=== PATIENT | female | born 1975 | race African-American/Black ===

== ENCOUNTER 2024-04-30 11:59 | Inpatient (IN) | payer OTHER ==
[2024-04-30 12:36] VITALS: BMI 29.2
[2024-04-30] MEDS ORDERED: BISMUTH SUBSALICYLATE 262 MG/15 ML BTL PO PRN (13:46)
[2024-04-30] MEDS ORDERED: POLYETHYLENE GLYCOL (HEALTHYLAX) 3350 17 GM PACKET PO PRN (13:46)
[2024-04-30] MEDS ORDERED: IBUPROFEN 400 MG TABLET (FP) PO PRN (13:46)
[2024-04-30] MEDS ORDERED: NALOXONE (NARCAN) HCL 4 MG/0.1 ML SPRAY NS PRN (13:46)
[2024-04-30] MEDS ORDERED: MAGNESIUM HYDROX 2400MG/30ML ORAL SUSPENSION 30 ML CUP PO PRN (13:46)
[2024-04-30] MEDS ORDERED: METHOCARBAMOL 500 MG TABLET PO PRN (13:46)
[2024-04-30] MEDS ORDERED: DICYCLOMINE HCL 10 MG CAPSULE PO PRN (13:46)
[2024-04-30] MEDS ORDERED: LORazepam 1 MG TABLET PO PRN (13:46)
[2024-04-30] MEDS ORDERED: BENZONATATE 200 MG CAPSULE PO PRN (13:46)
[2024-04-30] MEDS ORDERED: hydrOXYzine PAMOATE 25 MG CAPSULE (FP) PO PRN (13:46)
[2024-04-30] MEDS ORDERED: LOPERAMIDE HCL 2 MG CAPSULE PO PRN (13:46)
[2024-04-30] MEDS ORDERED: IBUPROFEN 600 MG TABLET (FP) PO PRN (13:46)
[2024-04-30] MEDS ORDERED: guaiFENesin 600 MG TABLET.ER (FP) PO PRN (13:46)
[2024-04-30] MEDS ORDERED: MAG HYDROX/AL HYDROX/SIMETH 30 ML UNIT-DOSE CUP PO PRN (13:46)
[2024-04-30] MEDS ORDERED: ONDANSETRON *ODT* 4 MG TABLET SL PRN (13:46)
[2024-04-30] MEDS ORDERED: traMADol HCL 50 MG TABLET PO PRN (14:02)
[2024-04-30] MEDS ORDERED: NICOTINE 7 MG/24 HOURS TOPICAL PATCH TD ONE (14:21)
[2024-04-30] MEDS ORDERED: PRENATAL VITAMINS W/ FOLIC ACID TABLET (FP) PO ONE (14:21)
[2024-04-30] MEDS ORDERED: LORazepam 2 MG TABLET ONE (14:21)
[2024-04-30] MEDS: LORazepam 2 MG TABLET PO ONE (14:35)
[2024-04-30] MEDS: PRENATAL VITAMINS W/ FOLIC ACID TABLET (FP) PO SCH (14:36)
[2024-04-30] MEDS: NICOTINE 7 MG/24 HOURS TOPICAL PATCH TD SCH (14:36)
[2024-04-30] MEDS: ALBUTEROL SO4 HFA INHALER IH SCH (15:00)
[2024-04-30] MEDS: ATORVASTATIN CA 10 MG TABLET (FP) PO SCH (15:00)
[2024-04-30] MEDS: LORazepam 2 MG TABLET PO SCH (17:22)
[2024-04-30] MEDS: ACETAMINOPHEN 325 MG TABLET (FP) PO PRN (17:22)
[2024-04-30] MEDS: MONTELUKAST NA 10 MG TABLET PO SCH (22:12)
[2024-04-30] MEDS: levETIRAcetam 500 MG TABLET (FP) PO SCH (22:12)
[2024-04-30] MEDS: DOCUSATE SODIUM 100 MG CAPSULE (FP) PO SCH (22:12)
[2024-04-30] MEDS: PANTOPRAZOLE 40 MG TABLET PO SCH (22:12)
[2024-04-30] MEDS: BUDESONIDE/FORMETEROL FUMARATE 80/4.5 mcg INHALER IH SCH (22:12)
[2024-04-30] MEDS: MEGESTROL ACETATE 20 MG TABLET PO SCH (22:12)
[2024-04-30] MEDS: MELATONIN 5 MG TABLETS PO SCH (22:13)
[2024-04-30] MEDS: THIAMINE 100 MG TABLET PO SCH (22:13)
[2024-04-30] MEDS: PRAZOSIN HCL 1 MG CAPSULE PO SCH (22:14)
[2024-05-01] MEDS ORDERED: traMADol HCL 50 MG TABLET PO PRN (10:01)
[2024-05-01] MEDS: SENNOSIDES 8.6MG TABLET (FP) PO SCH (10:44)
[2024-05-01 11:25] LABS: HEMATOCRIT 35.1 % (32.4-45.2); HEMOGLOBIN 11.5 GM/dL (10.7-15.3); MCH 32.9 pg (25.7-33.7); MCHC 32.9 g/dl (32.0-36.0); MEAN CELL VOLUME 100.2 fl (80-96); MEAN PLT VOLUME 7.5 fl (7.5-11.1); PLATELET COUNT 340 10^3/uL (134-434); RBC 3.51 M/mm3 (3.60-5.2); RDW 15.4 % (11.6-15.6)
[2024-05-01 11:33] LABS: CALCIUM 8.8 mg/dL (8.5-10.1)
[2024-05-01 11:34] LABS: BLOOD UREA NITROGEN 14.4 mg/dL (7-18)
[2024-05-01 11:37] LABS: CREATININE 0.8 mg/dL (0.55-1.3)
[2024-05-01 11:38] LABS: BILIRUBIN,TOTAL 0.4 mg/dL (0.2-1); TOT PROT 5.8 g/dl (6.4-8.2)
[2024-05-01] MEDS ORDERED: traZODone HCL 100 MG TABLET (FP) PO SCH (22:00)
[2024-05-01] MEDS: QUEtiapine FUMARATE 100 MG TABLET (FP) PO SCH (22:14)
[2024-05-01] MEDS: traZODone HCL 50 MG TABLET (FP) PO SCH (22:14)
[2024-05-01] MEDS: BENZOCAINE/MENTHOL (CHLORASEPTIC ) LOZENGE MM PRN (22:18)
[2024-05-01] MEDS ORDERED: ALBUTEROL SO4 HFA INHALER IH PRN (22:59)
[2024-05-02] MEDS: LORazepam 1 MG TABLET PO SCH (05:45)
[2024-05-03] MEDS ORDERED: LORazepam 0.5 MG TABLET PO PRN
[2024-05-03] MEDS: LORazepam 0.5 MG TABLET PO SCH (05:49)
[2024-05-04] MEDS: LORazepam 0.5 MG TABLET PO ONE (05:45)
[2024-05-04] MEDS: NALOXONE (NYS OPIOID OVERDOSE PROGRAM) 4 MG/0.1 ML SPRAY NS SCH (08:55)
[2024-05-04 09:19] VITALS: RESP 18
[2024-05-04 13:16] VITALS: BP 131/88; PULSE 65; TEMP 97.7
== END 2024-05-04 13:47 | disposition other institution (70) | DRG 774 ==
LOC: YASAS 11:59 → Y3N 14:24
PROVIDERS: ADMIT Allergy & Immunology; ATTEND Surgery
PROC: HZ2ZZZZ Detoxification Services for Substance Abuse Treatment (ICD-10-PCS; principal; 2024-04-30)
DX: F10.230 Alcohol dependence with withdrawal, uncomplicated (principal); F14.20 Cocaine dependence, uncomplicated; F12.20 Cannabis dependence, uncomplicated; F17.210 Nicotine dependence, cigarettes, uncomplicated; F31.9 Bipolar disorder, unspecified; F20.9 Schizophrenia, unspecified; D64.9 Anemia, unspecified; G40.909 Epilepsy, unspecified, not intractable, without status epilepticus; J45.909 Unspecified asthma, uncomplicated; K21.9 Gastro-esophageal reflux disease without esophagitis
CPT/HCPCS: 36415; 80053; 80305; 80307; 81025; 85027; 86593; 86780; 87811; 93005; 93010; J8999

== ENCOUNTER 2024-05-04 13:48 | Inpatient (IN) | payer OTHER ==
[2024-05-04] MEDS ORDERED: LOPERAMIDE HCL 2 MG CAPSULE PO PRN (18:02)
[2024-05-04] MEDS ORDERED: IBUPROFEN 400 MG TABLET (FP) PO PRN (18:02)
[2024-05-04] MEDS ORDERED: MAGNESIUM HYDROX 2400MG/30ML ORAL SUSPENSION 30 ML CUP PO PRN (18:02)
[2024-05-04] MEDS ORDERED: METHOCARBAMOL 500 MG TABLET PO PRN (18:02)
[2024-05-04] MEDS ORDERED: NALOXONE (NARCAN) HCL 4 MG/0.1 ML SPRAY NS PRN (18:02)
[2024-05-04] MEDS ORDERED: ACETAMINOPHEN 325 MG TABLET (FP) PO PRN (18:02)
[2024-05-04] MEDS ORDERED: hydrOXYzine PAMOATE 25 MG CAPSULE (FP) PO PRN (18:02)
[2024-05-04] MEDS ORDERED: NALOXONE HCL 0.4 MG/ML VIAL IVPUSH PRN (18:02)
[2024-05-04] MEDS ORDERED: BENZONATATE 200 MG CAPSULE PO PRN (18:02)
[2024-05-04] MEDS ORDERED: guaiFENesin 600 MG TABLET.ER (FP) PO PRN (18:02)
[2024-05-04] MEDS ORDERED: MAG HYDROX/AL HYDROX/SIMETH 30 ML UNIT-DOSE CUP PO PRN (18:02)
[2024-05-04] MEDS ORDERED: POLYETHYLENE GLYCOL (HEALTHYLAX) 3350 17 GM PACKET PO PRN (18:02)
[2024-05-04] MEDS ORDERED: BENZOCAINE/MENTHOL (CHLORASEPTIC ) LOZENGE MM PRN (18:02)
[2024-05-04] MEDS ORDERED: IBUPROFEN 600 MG TABLET (FP) PO PRN (18:02)
[2024-05-04] MEDS ORDERED: ALBUTEROL SO4 HFA INHALER IH PRN (18:03)
[2024-05-04] MEDS: BUDESONIDE/FORMETEROL FUMARATE 80/4.5 mcg INHALER IH SCH (22:26)
[2024-05-04] MEDS: THIAMINE 100 MG TABLET PO SCH (22:27)
[2024-05-04] MEDS: MELATONIN 5 MG TABLETS PO SCH (22:28)
[2024-05-04] MEDS: levETIRAcetam 500 MG TABLET (FP) PO SCH (22:29)
[2024-05-04] MEDS: PRAZOSIN HCL 1 MG CAPSULE PO SCH (22:29)
[2024-05-04] MEDS: PANTOPRAZOLE 40 MG TABLET PO SCH (22:30)
[2024-05-04] MEDS: DOCUSATE SODIUM 100 MG CAPSULE (FP) PO SCH (22:30)
[2024-05-04] MEDS: MONTELUKAST NA 10 MG TABLET PO SCH (22:30)
[2024-05-04] MEDS: ATORVASTATIN CA 10 MG TABLET (FP) PO SCH (22:30)
[2024-05-04] MEDS: traZODone HCL 50 MG TABLET (FP) PO SCH (22:31)
[2024-05-04] MEDS: MEGESTROL ACETATE 20 MG TABLET PO SCH (22:31)
[2024-05-04] MEDS: QUEtiapine FUMARATE 100 MG TABLET (FP) PO SCH (22:31)
[2024-05-05] MEDS: MEGESTROL ACETATE 20 MG TABLET PO SCH (07:26)
[2024-05-05] MEDS: PRENATAL VITAMINS W/ FOLIC ACID TABLET (FP) PO SCH (09:23)
[2024-05-05] MEDS: traZODone HCL 50 MG TABLET (FP) PO SCH (21:39)
[2024-05-05] MEDS: GABAPENTIN 100 MG CAPSULE PO SCH (21:39)
[2024-05-05] MEDS: QUEtiapine FUMARATE 200 MG TABLET PO SCH (21:39)
[2024-05-05] MEDS: PRAZOSIN HCL 1 MG CAPSULE PO SCH (22:23)
[2024-05-07 06:57] VITALS: BP 107/77; PULSE 70; RESP 16; TEMP 97.1
[2024-05-07] MEDS ORDERED: NALTREXONE HCL 50 MG TABLET PO SCH (10:15)
[2024-05-07] MEDS: NICOTINE 7 MG/24 HOURS TOPICAL PATCH TD SCH (11:40)
[2024-05-07] MEDS: BACLOFEN 10 MG TABLET (FP) PO SCH (11:41)
[2024-05-07] MEDS: MEGESTROL ACETATE 20 MG TABLET PO SCH (11:41)
[2024-05-07] MEDS: NALOXONE (NYS OPIOID OVERDOSE PROGRAM) 4 MG/0.1 ML SPRAY NS SCH (13:13)
[2024-05-07] MEDS ORDERED: DOCUSATE SODIUM 100 MG CAPSULE (FP) PO SCH (22:00)
[2024-05-08] MEDS ORDERED: NALTREXONE HCL 50 MG TABLET PO SCH (10:00)
[2024-05-17] MEDS ORDERED: NALTREXONE MICROSPHERES (VIVITROL) 380 MG DISP.SYRIN IM ONE (10:00)
== END 2024-05-07 12:30 | disposition left against medical advice (07) | DRG 770 ==
LOC: YASAS 13:48 → Y3NR 13:50 → Y5N 05-05 12:14
PROVIDERS: ADMIT Psychiatry & Neurology Pain Medicine; ATTEND Psychiatry & Neurology Pain Medicine
PROC: HZ42ZZZ Group Counseling for Substance Abuse Treatment, Cognitive-Behavioral (ICD-10-PCS; principal; 2024-05-04)
DX: F10.20 Alcohol dependence, uncomplicated (principal); F14.20 Cocaine dependence, uncomplicated; F17.210 Nicotine dependence, cigarettes, uncomplicated; F19.982 Other psychoactive substance use, unspecified with psychoactive substance-induced sleep disorder; F19.980 Other psychoactive substance use, unspecified with psychoactive substance-induced anxiety disorder; F43.10 Post-traumatic stress disorder, unspecified; I10 Essential (primary) hypertension; J45.909 Unspecified asthma, uncomplicated; G40.909 Epilepsy, unspecified, not intractable, without status epilepticus; G47.00 Insomnia, unspecified; Z91.148 Patient's other noncompliance with medication regimen for other reason; Z59.00 Homelessness unspecified
CPT/HCPCS: 36415; 82962; 86803; J8999

== ENCOUNTER 2024-09-07 20:55 | Inpatient (IN) | payer OTHER ==
[2024-09-07 21:24] VITALS: BMI 30.2
[2024-09-08] MEDS ORDERED: POLYETHYLENE GLYCOL (HEALTHYLAX) 3350 17 GM PACKET PO PRN (00:14)
[2024-09-08] MEDS ORDERED: NICOTINE POLACRILEX 2 MG GUM BUC PRN (00:14)
[2024-09-08] MEDS ORDERED: LOPERAMIDE HCL 2 MG CAPSULE PO PRN (00:14)
[2024-09-08] MEDS ORDERED: guaiFENesin 600 MG TABLET.ER (FP) PO PRN (00:14)
[2024-09-08] MEDS ORDERED: MAGNESIUM HYDROX 2400MG/30ML ORAL SUSPENSION 30 ML CUP PO PRN (00:14)
[2024-09-08] MEDS ORDERED: BENZONATATE 200 MG CAPSULE PO PRN (00:14)
[2024-09-08] MEDS ORDERED: MAG HYDROX/AL HYDROX/SIMETH 30 ML UNIT-DOSE CUP PO PRN (00:14)
[2024-09-08] MEDS ORDERED: ACETAMINOPHEN 325 MG TABLET (FP) PO PRN (00:14)
[2024-09-08] MEDS ORDERED: ONDANSETRON *ODT* 4 MG TABLET SL PRN (00:14)
[2024-09-08] MEDS ORDERED: DICYCLOMINE HCL 10 MG CAPSULE PO PRN (00:14)
[2024-09-08] MEDS ORDERED: BENZOCAINE/MENTHOL (CHLORASEPTIC ) LOZENGE MM PRN (00:14)
[2024-09-08] MEDS ORDERED: IBUPROFEN 400 MG TABLET (FP) PO PRN (00:14)
[2024-09-08] MEDS ORDERED: NALOXONE (NARCAN) HCL 4 MG/0.1 ML SPRAY NS PRN (00:14)
[2024-09-08] MEDS ORDERED: BISMUTH SUBSALICYLATE 524 MG/30 ML PO PRN (00:14)
[2024-09-08] MEDS: METHOCARBAMOL 500 MG TABLET PO PRN (02:30)
[2024-09-08] MEDS: hydrOXYzine PAMOATE 25 MG CAPSULE (FP) PO PRN (02:30)
[2024-09-08] MEDS ORDERED: ALBUTEROL SO4 HFA INHALER IH PRN (08:28)
[2024-09-08] MEDS ORDERED: LORazepam 1 MG TABLET PO PRN (09:44)
[2024-09-08] MEDS ORDERED: predniSONE 10 MG TABLET (UD) PO SCH (10:00)
[2024-09-08] MEDS: predniSONE 10 MG TABLET (UD) PO SCH (10:45)
[2024-09-08] MEDS: NICOTINE 14 MG/24 HOURS TOPICAL PATCH TD SCH (10:45)
[2024-09-08] MEDS: levETIRAcetam 500 MG TABLET (FP) PO SCH (10:45)
[2024-09-08] MEDS: PRENATAL VITAMINS W/ FOLIC ACID TABLET (FP) PO SCH (10:45)
[2024-09-08] MEDS: ATORVASTATIN CA 10 MG TABLET (FP) PO SCH (10:45)
[2024-09-08] MEDS: LORazepam 2 MG TABLET PO SCH (11:26)
[2024-09-08] MEDS: GABAPENTIN 300 MG CAPSULE PO SCH (14:45)
[2024-09-08] MEDS ORDERED: diazePAM 5 MG TABLET PO PRN (15:58)
[2024-09-08] MEDS: diazePAM 5 MG TABLET PO SCH (17:13)
[2024-09-08] MEDS: IBUPROFEN 600 MG TABLET (FP) PO PRN (17:14)
[2024-09-08] MEDS: QUEtiapine FUMARATE 100 MG TABLET (FP) PO SCH (22:22)
[2024-09-08] MEDS: MELATONIN 5 MG TABLETS PO SCH (22:22)
[2024-09-08] MEDS: THIAMINE 100 MG TABLET PO SCH (22:22)
[2024-09-08] MEDS: MOMETASONE FUROATE 220 MCG/IH INHALER IH SCH (22:23)
[2024-09-09] MEDS ORDERED: LORazepam 1 MG TABLET PO SCH (05:00)
[2024-09-09] MEDS: diazePAM 5 MG TABLET PO SCH (06:04)
[2024-09-09 11:11] LABS: HEMOGLOBIN 12.4 g/dL (11.2-15.7); MCHC 32.6 g/dl (32.2-35.5); MEAN CELL VOLUME 99.2 fl (79.4-94.8); MEAN PLT VOLUME 9.5 fl (9.4-12.3); PLATELET COUNT 288 x10^3/uL (182-369); RDW 14.1 % (12.2-17.1)
[2024-09-09 11:30] LABS: POTASSIUM 3.7 mmol/L (3.5-5.1)
[2024-09-09 11:38] LABS: ALBUMIN 3.1 g/dl (3.4-5.0)
[2024-09-09 11:39] LABS: BLOOD UREA NITROGEN 13.7 mg/dL (7-18)
[2024-09-09 11:41] LABS: CREATININE 0.7 mg/dL (0.55-1.3)
[2024-09-09 11:43] LABS: BILIRUBIN,TOTAL 0.3 mg/dL (0.2-1); TOT PROT 5.8 g/dl (6.4-8.2)
[2024-09-09] MEDS: PENICILLIN G BENZATHINE 2,400,000 UNIT/4 ML PFS IM ONE (17:28)
[2024-09-09] MEDS: amLODIPine BESYLATE 5 MG TABLET (FP) PO ONE (21:21)
[2024-09-10] MEDS ORDERED: LORazepam 0.5 MG TABLET PO PRN
[2024-09-10] MEDS ORDERED: LORazepam 0.5 MG TABLET PO SCH (05:00)
[2024-09-10] MEDS: diazePAM 5 MG TABLET PO SCH (07:14)
[2024-09-10] MEDS: amLODIPine BESYLATE 5 MG TABLET (FP) PO SCH (09:37)
[2024-09-10] MEDS ORDERED: AMLODIPINE PO SCH (10:00)
[2024-09-10 12:29] VITALS: BP 154/107; PULSE 72; RESP 16; TEMP 97.6
[2024-09-11] MEDS ORDERED: LORazepam 0.5 MG TABLET PO ONE (05:00)
[2024-09-11] MEDS ORDERED: diazePAM 5 MG TABLET PO ONE (06:00)
== END 2024-09-10 11:37 | disposition home or self-care (01) | DRG 774 ==
LOC: YASAS 20:55 → Y6N 09-08 01:43
PROVIDERS: ADMIT Allergy & Immunology; ATTEND Allergy & Immunology
PROC: HZ2ZZZZ Detoxification Services for Substance Abuse Treatment (ICD-10-PCS; principal; 2024-09-08)
DX: F10.230 Alcohol dependence with withdrawal, uncomplicated (principal); F14.20 Cocaine dependence, uncomplicated; F17.210 Nicotine dependence, cigarettes, uncomplicated; F19.280 Other psychoactive substance dependence with psychoactive substance-induced anxiety disorder; F19.282 Other psychoactive substance dependence with psychoactive substance-induced sleep disorder; F20.0 Paranoid schizophrenia; F31.9 Bipolar disorder, unspecified; F43.10 Post-traumatic stress disorder, unspecified; E78.2 Mixed hyperlipidemia; G40.909 Epilepsy, unspecified, not intractable, without status epilepticus; I10 Essential (primary) hypertension; J45.20 Mild intermittent asthma, uncomplicated
CPT/HCPCS: 36415; 80053; 80305; 80307; 81025; 85027; 86593; 86780; 93005; 93010

== ENCOUNTER 2024-10-12 12:09 | Inpatient (IN) | payer OTHER ==
[2024-10-12 12:31] VITALS: BMI 28.3
[2024-10-12] MEDS ORDERED: MAGNESIUM HYDROX 2400MG/30ML ORAL SUSPENSION 30 ML CUP PO PRN (13:27)
[2024-10-12] MEDS ORDERED: MAG HYDROX/AL HYDROX/SIMETH 30 ML UNIT-DOSE CUP PO PRN (13:27)
[2024-10-12] MEDS ORDERED: POLYETHYLENE GLYCOL (HEALTHYLAX) 3350 17 GM PACKET PO PRN (13:27)
[2024-10-12] MEDS ORDERED: BENZOCAINE/MENTHOL (CHLORASEPTIC ) LOZENGE MM PRN (13:27)
[2024-10-12] MEDS ORDERED: guaiFENesin 600 MG TABLET.ER (FP) PO PRN (13:27)
[2024-10-12] MEDS ORDERED: ACETAMINOPHEN 325 MG TABLET (FP) PO PRN (13:27)
[2024-10-12] MEDS ORDERED: ONDANSETRON *ODT* 4 MG TABLET SL PRN (13:27)
[2024-10-12] MEDS ORDERED: DICYCLOMINE HCL 10 MG CAPSULE PO PRN (13:27)
[2024-10-12] MEDS ORDERED: LOPERAMIDE HCL 2 MG CAPSULE PO PRN (13:27)
[2024-10-12] MEDS ORDERED: IBUPROFEN 400 MG TABLET (FP) PO PRN (13:27)
[2024-10-12] MEDS ORDERED: BISMUTH SUBSALICYLATE 524 MG/30 ML PO PRN (13:27)
[2024-10-12] MEDS ORDERED: NALOXONE (NARCAN) HCL 4 MG/0.1 ML SPRAY NS PRN (13:27)
[2024-10-12] MEDS ORDERED: BENZONATATE 200 MG CAPSULE PO PRN (13:27)
[2024-10-12] MEDS ORDERED: ALBUTEROL SO4 HFA INHALER IH PRN (13:29)
[2024-10-12] MEDS ORDERED: levETIRAcetam 500 MG TABLET (FP) PO ONE (15:00)
[2024-10-12] MEDS ORDERED: GABAPENTIN 100 MG CAPSULE ONE (15:01)
[2024-10-12] MEDS: GABAPENTIN 300 MG CAPSULE PO SCH (15:02)
[2024-10-12] MEDS: levETIRAcetam 500 MG TABLET (FP) PO ONE (15:02)
[2024-10-12] MEDS: MELATONIN 5 MG TABLETS PO SCH (23:15)
[2024-10-12] MEDS: PRAZOSIN HCL 1 MG CAPSULE PO SCH (23:15)
[2024-10-12] MEDS: MIRTAZAPINE 15 MG TABLET (FP) PO SCH (23:16)
[2024-10-12] MEDS: THIAMINE 100 MG TABLET PO SCH (23:16)
[2024-10-13] MEDS: PRENATAL VITAMINS W/ FOLIC ACID TABLET (FP) PO SCH (10:34)
[2024-10-13] MEDS: levETIRAcetam 500 MG TABLET (FP) PO SCH (10:34)
[2024-10-13] MEDS: NICOTINE 14 MG/24 HOURS TOPICAL PATCH TD SCH (10:34)
[2024-10-13] MEDS: METHOCARBAMOL 500 MG TABLET PO PRN (13:27)
[2024-10-13] MEDS: GABAPENTIN 300 MG CAPSULE PO SCH (13:27)
[2024-10-13 14:55] LABS: HEMATOCRIT 44.8 % (34.1-44.9); HEMOGLOBIN 14.5 g/dL (11.2-15.7); MCHC 32.4 g/dl (32.2-35.5); MEAN CELL VOLUME 97.6 fl (79.4-94.8); MEAN PLT VOLUME 10.3 fl (9.4-12.3); PLATELET COUNT 289 x10^3/uL (182-369); RDW 12.7 % (12.2-17.1)
[2024-10-13] MEDS: diazePAM 5 MG TABLET PO PRN (15:00)
[2024-10-13] MEDS: hydrOXYzine PAMOATE 25 MG CAPSULE (FP) PO PRN (15:01)
[2024-10-13 15:02] LABS: POTASSIUM 4.1 mmol/L (3.5-5.1)
[2024-10-13 15:04] LABS: ALBUMIN 3.2 g/dl (3.4-5.0); CALCIUM 9.4 mg/dL (8.5-10.1)
[2024-10-13 15:06] LABS: BLOOD UREA NITROGEN 12.7 mg/dL (7-18)
[2024-10-13 15:08] LABS: CREATININE 0.8 mg/dL (0.55-1.3)
[2024-10-13 15:10] LABS: BILIRUBIN,TOTAL 0.2 mg/dL (0.2-1); TOT PROT 6.2 g/dl (6.4-8.2)
[2024-10-13] MEDS: diazePAM 5 MG TABLET PO SCH (17:27)
[2024-10-13] MEDS: QUEtiapine FUMARATE 100 MG TABLET (FP) PO SCH (22:52)
[2024-10-14] MEDS: CYPROHEPTADINE HCL 4 MG TABLET PO SCH (17:00)
[2024-10-15] MEDS: diazePAM 5 MG TABLET PO SCH (06:37)
[2024-10-15] MEDS ORDERED: LORazepam 2 MG/ML SDV VIAL ONE (07:29)
[2024-10-15] MEDS: levETIRAcetam 500 MG TABLET (FP) PO SCH (22:06)
[2024-10-15] MEDS: VITAMINS A AND D TOPICAL OINTMENT TP PRN (22:08)
[2024-10-16] MEDS: diazePAM 5 MG TABLET PO SCH (06:24)
[2024-10-16] MEDS: diazePAM 5 MG TABLET PO ONE (15:56)
[2024-10-16] MEDS: IBUPROFEN 600 MG TABLET (FP) PO PRN (17:25)
[2024-10-16] MEDS: cloNIDine HCL 0.1 MG TABLET PO PRN (17:25)
[2024-10-16] MEDS: amLODIPine BESYLATE 5 MG TABLET (FP) PO SCH (17:25)
[2024-10-16] MEDS: NICOTINE POLACRILEX 2 MG GUM BUC PRN (17:26)
[2024-10-17] MEDS: diazePAM 5 MG TABLET PO ONE (06:20)
[2024-10-17 09:24] VITALS: BP 128/87; PULSE 75; RESP 18; TEMP 96.9
== END 2024-10-17 09:32 | disposition home or self-care (01) | DRG 773 ==
LOC: YASAS 12:09 → Y6N 14:42
PROVIDERS: ADMIT Allergy & Immunology; ATTEND Allergy & Immunology
PROC: HZ2ZZZZ Detoxification Services for Substance Abuse Treatment (ICD-10-PCS; principal; 2024-10-12)
DX: F11.23 Opioid dependence with withdrawal (principal); F10.230 Alcohol dependence with withdrawal, uncomplicated; F14.20 Cocaine dependence, uncomplicated; F17.210 Nicotine dependence, cigarettes, uncomplicated; F31.9 Bipolar disorder, unspecified; F19.282 Other psychoactive substance dependence with psychoactive substance-induced sleep disorder; F19.280 Other psychoactive substance dependence with psychoactive substance-induced anxiety disorder; E78.2 Mixed hyperlipidemia; G40.909 Epilepsy, unspecified, not intractable, without status epilepticus; I10 Essential (primary) hypertension; J45.20 Mild intermittent asthma, uncomplicated
CPT/HCPCS: 36415; 80053; 80177; 80305; 80307; 81025; 82962; 83690; 85027; 86593; 86780; 93005; 93010

== ENCOUNTER 2024-10-15 08:36 | Emergency (ER) | payer OTHER ==
[2024-10-15 08:52] VITALS: TEMP 98; BMI 28.3
[2024-10-15] MEDS ORDERED: levETIRAcetam 500 MG/5 ML INJECTION VIAL IVPB ONE (09:02)
[2024-10-15 09:09] LABS: ABSOLUTE IMMATURE GRANULOCYTES 0.01 x10^3/uL (0.0-0.031); BASOPHILS # 0.03 x10^3/uL (0.01-0.08); EOSINOPHIL % 7.6 % (0.7-5.8); EOSINOPHILS # 0.28 x10^3/uL (0.04-0.36); HEMATOCRIT 44.5 % (34.1-44.9); HEMOGLOBIN 14.2 g/dL (11.2-15.7); MCHC 31.9 g/dl (32.2-35.5); MEAN CELL VOLUME 98.5 fl (79.4-94.8); MONOCYTE # 0.39 x10^3/uL (0.24-0.86); MONOCYTE % 10.6 % (4.7-12.5); PLATELET COUNT 299 x10^3/uL (182-369); RDW 13.1 % (12.2-17.1)
[2024-10-15] MEDS: levETIRAcetam 500 MG/5 ML INJECTION VIAL IVPB ONE (09:41)
[2024-10-15 09:43] LABS: POTASSIUM 3.7 mmol/L (3.5-5.1)
[2024-10-15 09:45] LABS: CALCIUM 9.7 mg/dL (8.5-10.1)
[2024-10-15 09:46] LABS: ALBUMIN 3.6 g/dl (3.4-5.0); BLOOD UREA NITROGEN 12.8 mg/dL (7-18); MAGNESIUM 2.1 mg/dL (1.8-2.4)
[2024-10-15 09:49] LABS: CREATININE 0.8 mg/dL (0.55-1.3)
[2024-10-15 09:50] LABS: BILIRUBIN,TOTAL 0.2 mg/dL (0.2-1)
[2024-10-15] MEDS: SODIUM CHLORIDE 0.9% 500 ML INFUS.BAG IV ONE (10:18)
[2024-10-15 11:15] VITALS: BP 150/86; PULSE 65; RESP 20
[2024-10-15 11:25] LABS: URINE APPEARANCE CLEAR; URINE BILIRUBIN NEGATIVE (NEGATIVE); URINE COLOR YELLOW; URINE GLUCOSE (UA) NEGATIVE (NEGATIVE); URINE KETONE NEGATIVE (NEGATIVE); URINE LEUK ESTERASE NEGATIVE (NEGATIVE); URINE NITRITE NEGATIVE (NEGATIVE); URINE PROTEIN NEGATIVE (NEGATIVE); URINE UROBILINOGEN 0.2 mg/dL (0.2-1.0)
[2024-10-15 11:44] LABS: METHADONE, UR NEGATIVE (NEGATIVE); OPIATES, URI NEGATIVE (NEGATIVE); PHENCYCLIDINE,URINE NEGATIVE (NEGATIVE); URINE BARBITURATES NEGATIVE (NEGATIVE)
[2024-10-15 11:45] LABS: COCAINE, UR NEGATIVE (NEGATIVE); URINE AMPHETAMINES NEGATIVE (NEGATIVE)
[2024-10-15 11:50] LABS: URINE BENZODIAZEPINES POSITIVE (NEGATIVE)
== END 2024-10-15 13:20 | disposition home or self-care (01) ==
LOC: JER 08:36
PROC: 3E033GC Introduction of Other Therapeutic Substance into Peripheral Vein, Percutaneous Approach (ICD-10-PCS; principal; 2024-10-15)
DX: G40.909 Epilepsy, unspecified, not intractable, without status epilepticus (principal); R32 Unspecified urinary incontinence
CPT/HCPCS: 0241U-QW; 36415; 70450-TC; 71045-TC-FY; 80053; 80177; 80307; 81003; 83735; 84484; 85025; 87086; 93005; 93010; 99285-25

== ENCOUNTER 2025-03-19 06:47 | Inpatient (IN) | payer OTHER ==
[2025-03-19 07:17] VITALS: BMI 24.1
[2025-03-19] MEDS ORDERED: ACETAMINOPHEN 325 MG TABLET (FP) PO PRN (08:24)
[2025-03-19] MEDS ORDERED: MAG HYDROX/AL HYDROX/SIMETH 30 ML UNIT-DOSE CUP PO PRN (08:24)
[2025-03-19] MEDS ORDERED: POLYETHYLENE GLYCOL (HEALTHYLAX) 3350 17 GM PACKET PO PRN (08:24)
[2025-03-19] MEDS ORDERED: MAGNESIUM HYDROX 2400MG/30ML ORAL SUSPENSION 30 ML CUP PO PRN (08:24)
[2025-03-19] MEDS ORDERED: guaiFENesin 600 MG TABLET.ER (FP) PO PRN (08:24)
[2025-03-19] MEDS ORDERED: ONDANSETRON *ODT* 4 MG TABLET SL PRN (08:24)
[2025-03-19] MEDS ORDERED: BISMUTH SUBSALICYLATE 524 MG/30 ML PO PRN (08:24)
[2025-03-19] MEDS ORDERED: IBUPROFEN 400 MG TABLET (FP) PO PRN (08:24)
[2025-03-19] MEDS ORDERED: BACLOFEN 10 MG TABLET (FP) PO PRN (08:24)
[2025-03-19] MEDS ORDERED: NALOXONE (NARCAN) HCL 4 MG/0.1 ML SPRAY NS PRN (08:24)
[2025-03-19] MEDS ORDERED: BENZONATATE 200 MG CAPSULE PO PRN (08:24)
[2025-03-19] MEDS ORDERED: DICYCLOMINE HCL 10 MG CAPSULE PO PRN (08:24)
[2025-03-19] MEDS ORDERED: LOPERAMIDE HCL 2 MG CAPSULE PO PRN (08:24)
[2025-03-19] MEDS: amLODIPine BESYLATE 5 MG TABLET (FP) PO SCH (10:13)
[2025-03-19] MEDS: NICOTINE 21 MG/24 HOURS TOPICAL PATCH TD SCH (10:13)
[2025-03-19] MEDS: levETIRAcetam 500 MG TABLET (FP) PO SCH (10:13)
[2025-03-19] MEDS: NALTREXONE HCL 50 MG TABLET PO ONE (10:14)
[2025-03-19] MEDS: PRENATAL VITAMINS W/ FOLIC ACID TABLET (FP) PO SCH (10:14)
[2025-03-19] MEDS: NICOTINE POLACRILEX 2 MG GUM BUC PRN (10:17)
[2025-03-19] MEDS: METHOCARBAMOL 500 MG TABLET PO PRN (17:04)
[2025-03-19] MEDS: ALBUTEROL SO4 HFA INHALER IH PRN (20:43)
[2025-03-19] MEDS: BENZOCAINE/MENTHOL (CHLORASEPTIC ) LOZENGE MM PRN (20:44)
[2025-03-19] MEDS: hydrOXYzine PAMOATE 25 MG CAPSULE (FP) PO PRN (20:45)
[2025-03-19] MEDS: QUEtiapine FUMARATE 100 MG TABLET (FP) PO SCH (22:12)
[2025-03-19] MEDS: ATORVASTATIN CA 10 MG TABLET (FP) PO SCH (22:12)
[2025-03-19] MEDS: MIRTAZAPINE 15 MG TABLET (FP) PO SCH (22:12)
[2025-03-19] MEDS: THIAMINE 100 MG TABLET PO SCH (22:12)
[2025-03-19] MEDS: MELATONIN 5 MG TABLETS PO SCH (22:12)
[2025-03-20] MEDS: NALTREXONE HCL 50 MG TABLET PO SCH (10:19)
[2025-03-20] MEDS: NICOTINE POLACRILEX 2 MG LOZENGE BC PRN (10:20)
[2025-03-21] MEDS: NYSTATIN 500,000 UNITS/5 ML SUSPENSION PO SCH (11:54)
[2025-03-21] MEDS: IBUPROFEN 600 MG TABLET (FP) PO PRN (17:11)
[2025-03-22 15:03] LABS: MCHC 32.2 g/dl (32.2-35.5); MEAN CELL VOLUME 97.3 fl (79.4-94.8); MEAN PLT VOLUME 9.3 fl (9.4-12.3); RDW 13.5 % (12.2-17.1)
[2025-03-22 15:16] LABS: GLUCOSE,RANDOM 91.0 mg/dL (74-106); TOT PROT 6.2 g/dl (6.4-8.2)
[2025-03-22 15:17] LABS: CO2 25.0 mmol/L (21-32)
[2025-03-22 15:19] LABS: ALK PHOS 77.0 U/L (40-150)
[2025-03-22 15:21] LABS: SGOT/AST 16.0 U/L (5-34); SGPT/ALT 14.0 U/L (0-55)
[2025-03-22 15:22] LABS: CREATININE 0.62 mg/dL (0.55-1.3)
[2025-03-22 15:43] LABS: SYPHILIS W/ RPR CONF REACTIVE (NONREACTIVE)
[2025-03-23 08:26] LABS: RPR REFLEX REACTIVE 1:1 (NONREACTIVE)
[2025-03-23 09:17] VITALS: BP 103/61; PULSE 65; RESP 12; TEMP 96.8
== END 2025-03-23 10:03 | disposition home or self-care (01) | DRG 774 ==
LOC: YASAS 06:47 → Y3N 09:19
PROVIDERS: ADMIT Allergy & Immunology; ATTEND Family Medicine
PROC: HZ2ZZZZ Detoxification Services for Substance Abuse Treatment (ICD-10-PCS; principal; 2025-03-19)
DX: F10.230 Alcohol dependence with withdrawal, uncomplicated (principal); F14.20 Cocaine dependence, uncomplicated; F17.210 Nicotine dependence, cigarettes, uncomplicated; F19.280 Other psychoactive substance dependence with psychoactive substance-induced anxiety disorder; F19.24 Other psychoactive substance dependence with psychoactive substance-induced mood disorder; F31.9 Bipolar disorder, unspecified; F25.9 Schizoaffective disorder, unspecified; B37.0 Candidal stomatitis; E78.2 Mixed hyperlipidemia; G40.909 Epilepsy, unspecified, not intractable, without status epilepticus; G47.00 Insomnia, unspecified; I10 Essential (primary) hypertension; J44.9 Chronic obstructive pulmonary disease, unspecified; J45.20 Mild intermittent asthma, uncomplicated; Z59.00 Homelessness unspecified
CPT/HCPCS: 36415; 80053; 80305; 80307; 81025; 85027; 86593; 86780; 93005; 93010